=== PATIENT | male | born 1950 | race Caucasian/White ===

== ENCOUNTER 2025-10-25 00:19 | Inpatient (IN) | payer MEDICARE, OTHER, SELFPAY ==
[2025-10-24 21:25] VITALS: BP 98/83
[2025-10-24 21:26] VITALS: BMI 22.2
[2025-10-24 21:38] LABS: Hematocrit 43.8 % (39.0-52.0); Hemoglobin 14.5 g/dL (13.0-18.0); Mean Corp Hgb Conc. 33.1 g/dL (33.0-37.0); Mean Corpuscular Volume 93.6 fL (80.0-94.0); Nucleated Red Blood Cells % 0 % (-); Platelet Count 229 10^3/uL (130-400); Red Cell Dist. Width 13.6 % (11.5-14.5)
[2025-10-24 21:44] LABS: Glucose - Point of Care 72 mg/dl (70-99)
--- NOTE | 2025-10-24 21:47 | ED.GENMED ---
History of Present Illness
<Mirela Benites PA-C - Last Filed: 10/25/25 03:14>
General
Chief Complaint: Fainting/Passed Out
Source: patient
Exam Limitations: none
Time Seen by Provider: 10/24/25 21:35
History of Present Illness
History of Present Illness:
75yoM with a history of atrial fibrillation on Eliquis and pacemaker presenting via EMS for evaluation after a syncopal episode. Patient was out to dinner at a restaurant. He went to the bathroom after the dinner was finished to urinate. He was
urinating and started to become lightheaded. He then dropped to the ground. He is not sure if he lowered himself to the ground or passed out at that time. He was able to get up and go out of the stall. He was exiting the bathroom when he had a
witnessed syncopal episode. He hit the back of his head and woke up with emesis around him. He was reportedly unconscious for about 3 minutes. There was no associated incontinence, tongue biting, or seizure-like activity. He currently complains
of headache and neck stiffness. He also has some shortness of breath that started after the incident. He denies any chest pain. He had a syncopal episode about a year ago. He was told that he had a 14-second pause and a pacemaker was placed at
that time at [facility].
Phy Exam
<Mirela Benites PA-C - Last Filed: 10/25/25 03:14>
Physical Exam
Physical Exam:
Patient ill-appearing with dried emesis on chin, no apparent distress
General Physical Exam
General Presentation: no apparent distress
General Skin: warm and dry
General Habitus: elderly
General Mental: alert
ENT Exam
ENT Exam: normocephalic and other (No external signs of head trauma. No cervical spine tenderness.)
Cardiovascular Exam
Cardiovascular Exam: no edema and tachycardia
Pulmonary Exam
Pulmonary Exam: lungs clear, no respiratory distress, no rales, no crackles, no rhonchi and no wheezing
Gastrointestinal Exam
Gastrointestinal Exam: non tender, soft and non distended
Neurological Exam
Neurological Exam: alert
[place] Coma Scale
Eye Opening: Spontaneous
Verbal Response: Oriented
Motor Response: Obeys Commands
GCS Total Score: 15
Skin Exam
Skin Exam: normal color and warm/dry
Psychiatric Exam
Psychiatric Exam: normal mood/affect
<Kashmir Urias MD - Last Filed: 10/25/25 17:06>
[place] Coma Scale
GCS Total Score: 15
Course
<Mirela Benites PA-C - Last Filed: 10/25/25 03:14>
Orders/Labs/Results
Orders:
Orders
10/24/25 21:25
Electrocardiogram (*1) Urgent
Reason for Study: Syncope
EKG- Treatment ONCE
10/24/25 21:30
Complete Blood Count/With Diff Urgent
Comprehensive Metabolic Panel Urgent
Troponin I Urgent
10/24/25 21:34
CT Head W/o Iv Contrast Urgent
Comment:
Reason For Exam: syncope from standing, headache, on eliquis
Cervical Spine wo Contrast CT [CT Cervical Spine W/o Iv Contr] Urgent
Comment:
Reason For Exam: syncope from standing, headache, on eliquis
10/24/25 21:45
Interrogate Pacemaker- Treatment ONCE
10/24/25 21:46
Cardiac Monitoring- Treatment ONCE
0.9% Sodium Chloride 500 ml [Nss] 500 ml IV BOLUS
10/24/25 21:48
CR Chest Single View Urgent
Reason For Exam: SOB
10/24/25 22:49
Ondansetron Injectable [Zofran] 4 mg .ROUTE .[facility]
10/24/25 22:50
Ondansetron Injectable [Zofran] 4 mg IV NOW STA
10/24/25 23:23
Admit/Transfer Patient As Directed
Co-Sign Provider:
Level of Care: Inpatient admission
Assign to:: IVU
Physician / Group: azra
Diagnosis: syncope
Reason for Hospitalization: syncope
Expected length of stay greater than two midnights?: Yes
ELOS- Estimated Length of Stay in days: 2
I certify the patient meets the requirements for IP care: Yes
PRN Pain Medication Management As Directed
May give lesser potent ordered pain med per pt: Yes
preference::
Protocol:: Medication orders for pain may be administered in a
manner that supports deferring to patient preference
when the pt is:
- Requesting an ordered lesser potent pain medication.
Least to most potent pain medications are defined
as: acetaminophen < NSAID < tramadol < opioids
(morphine, oxycodone, hydromorphone).
- Requesting a lesser dose of the same medication IF
ORDERED.
- Requesting a less intrusive route of administration
if both routes are prescribed by the provider (PO <
IV).
10/24/25 23:24
Code Status As Directed
Resuscitation Status: Full Code
10/24/25 23:31
0.9% Sodium Chloride 250 ml [Nss] 250 ml IV BOLUS
10/24/25 23:47
Metoclopramide [Reglan] 10 mg IV NOW STA
10/25/25 01:11
Ondansetron Injectable [Zofran] 4 mg IV Q6HPRN PRN
10/25/25 01:11
CARDIOLOGY CONSULT Routine
Consulting Provider: Diomedes Quintanilla
Was physician already notified: No
Reason for consult: syncope
Consult Notification Routine
Specialty to Notify: Cardiology
Date consulting provider notified: 10/25/25
Time consulting provider notified: 07:16
Notified:: Provider
VTE Contraindication Routine
VTE Mechanical Device Contraindication: Medical Contraindication
Pharmocologic Contraindication: Medical Contraindication
Activity As Directed
Activity Level: As Tolerated
Vital Signs As Directed
Frequency: Per unit guidelines
10/25/25 02:02
Complete Blood Count/With Diff IN AM
Comprehensive Metabolic Panel IN AM
10/25/25 Breakfast
Cholesterol Lowering
At Your Request: Full Participation
Cholesterol Lowering: Sodium, 2 Gram
Abnormal Lab Results
10/24/25
21:30
RBC 4.68 L 10^6/uL
(4.70-6.10)
MPV 10.9 H fL
(7.4-10.4)
Abs Immat Gran (auto) 0.1 H 10^3/uL
(0-0.05)
Absolute Monos (auto) 0.9 H 10^3/uL
(0.1-0.6)
Immature Gran % 0.7 H %
(0-0.5)
BUN 22 H mg/dl
(9-20)
10/24/25 21:30
10/24/25 21:30
Vital Signs
Initial and Last Documented VS:
Initial Vital Signs
BP
98/83
10/24/25 21:25
Last Documented Vital Signs
Temp Pulse Resp BP Pulse Ox
98.2 F 73 12 110/70 96
10/25/25 15:27 10/25/25 15:45 10/25/25 15:27 10/25/25 15:28 10/25/25 15:27
<Kashmir Urias MD - Last Filed: 10/25/25 17:06>
Orders/Labs/Results
Orders:
Orders
10/24/25 21:25
Electrocardiogram (*1) Urgent
Reason for Study: Syncope
EKG- Treatment ONCE
10/24/25 21:30
Complete Blood Count/With Diff Urgent
Comprehensive Metabolic Panel Urgent
Troponin I Urgent
10/24/25 21:34
CT Head W/o Iv Contrast Urgent
Comment:
Reason For Exam: syncope from standing, headache, on eliquis
Cervical Spine wo Contrast CT [CT Cervical Spine W/o Iv Contr] Urgent
Comment:
Reason For Exam: syncope from standing, headache, on eliquis
10/24/25 21:45
Interrogate Pacemaker- Treatment ONCE
10/24/25 21:46
Cardiac Monitoring- Treatment ONCE
0.9% Sodium Chloride 500 ml [Nss] 500 ml IV BOLUS
10/24/25 21:48
CR Chest Single View Urgent
Reason For Exam: SOB
10/24/25 22:49
Ondansetron Injectable [Zofran] 4 mg .ROUTE .[facility]-MED ONE
10/24/25 22:50
Ondansetron Injectable [Zofran] 4 mg IV NOW STA
10/24/25 23:23
Admit/Transfer Patient As Directed
Co-Sign Provider:
Level of Care: Inpatient admission
Assign to:: IVU
Physician / Group: azra
Diagnosis: syncope
Reason for Hospitalization: syncope
Expected length of stay greater than two midnights?: Yes
ELOS- Estimated Length of Stay in days: 2
I certify the patient meets the requirements for IP care: Yes
PRN Pain Medication Management As Directed
May give lesser potent ordered pain med per pt: Yes
preference::
Protocol:: Medication orders for pain may be administered in a
manner that supports deferring to patient preference
when the pt is:
- Requesting an ordered lesser potent pain medication.
Least to most potent pain medications are defined
as: acetaminophen < NSAID < tramadol < opioids
(morphine, oxycodone, hydromorphone).
- Requesting a lesser dose of the same medication IF
ORDERED.
- Requesting a less intrusive route of administration
if both routes are prescribed by the provider (PO <
IV).
10/24/25 23:24
Code Status As Directed
Resuscitation Status: Full Code
10/24/25 23:31
0.9% Sodium Chloride 250 ml [Nss] 250 ml IV BOLUS
10/24/25 23:47
Metoclopramide [Reglan] 10 mg IV NOW STA
10/25/25 01:11
Ondansetron Injectable [Zofran] 4 mg IV Q6HPRN PRN
10/25/25 01:11
CARDIOLOGY CONSULT Routine
Consulting Provider: Diomedes Quintanilla
Was physician already notified: No
Reason for consult: syncope
Consult Notification Routine
Specialty to Notify: Cardiology
Date consulting provider notified: 10/25/25
Time consulting provider notified: 07:16
Notified:: Provider
VTE Contraindication Routine
VTE Mechanical Device Contraindication: Medical Contraindication
Pharmocologic Contraindication: Medical Contraindication
Activity As Directed
Activity Level: As Tolerated
Vital Signs As Directed
Frequency: Per unit guidelines
10/25/25 02:02
Complete Blood Count/With Diff IN AM
Comprehensive Metabolic Panel IN AM
10/25/25 Breakfast
Cholesterol Lowering
At Your Request: Full Participation
Cholesterol Lowering: Sodium, 2 Gram
Abnormal Lab Results
10/24/25
21:30
RBC 4.68 L 10^6/uL
(4.70-6.10)
MPV 10.9 H fL
(7.4-10.4)
Abs Immat Gran (auto) 0.1 H 10^3/uL
(0-0.05)
Absolute Monos (auto) 0.9 H 10^3/uL
(0.1-0.6)
Immature Gran % 0.7 H %
(0-0.5)
BUN 22 H mg/dl
(9-20)
10/24/25 21:30
10/24/25 21:30
Vital Signs
Initial and Last Documented VS:
Initial Vital Signs
BP
98/83
10/24/25 21:25
Last Documented Vital Signs
Temp Pulse Resp BP Pulse Ox
98.2 F 73 12 110/70 96
10/25/25 15:27 10/25/25 15:45 10/25/25 15:27 10/25/25 15:28 10/25/25 15:27
<Mirela Benites PA-C - Last Filed: 10/25/25 03:14>
MDM/Problems Addressed
Differential Diagnosis Includes:
75yoM presenting after a syncopal episode. Occurred while standing and preceded by dizziness. +Head strike on Eliquis. Patient tachycardic on arrival with HR around 120. BP 98/83. Patient appears ill although is nontoxic. Dried emesis noted on
chin. Differential diagnosis includes but is not limited to: Orthostatic hypotension, vasovagal episode, cardiogenic syncope, arrhythmia, intracranial hemorrhage
Initial ED plan: Check cardiac labs, EKG, CT head/cervical spine, chest x-ray, and interrogate pacemaker. 500cc NS bolus ordered.
<Mirela Benites PA-C - Last Filed: 10/25/25 03:14>
*Pulse Oximetry
Patient hypoxic: no
*EKG
Interpreted by ED Provider?: Yes
EKG Intrepretation Date: 10/24/25
Heart Rate: 119
Rate: tachycardiac
Rhythm: av sequential
[place]: normal axis
*Critical Care Note
Total Time (30-74mins, 75-104mins- exclusive of procedures): Not Applicable
<Mirela Benites PA-C - Last Filed: 10/25/25 03:14>
Update Note
Update Note:
Labs overall unremarkable including normal hemoglobin. Troponin normal and EKG shows paced rhythm. CT head/cervical spine negative for traumatic injuries and chest x-ray clear. Patient became transiently hypotensive to 87/75 while in ED. Blood
pressure improved with fluids. Patient continues to be symptomatic and had recurrent dizziness and vomiting while getting chest x-ray completed. Will admit for further evaluation.
ED Attending Note
<Mirela Benites PA-C - Last Filed: 10/25/25 03:14>
-
Portions of this chart may have been created with voice recognition software.� Occasional wrong word or��sound alike� substitutions may have occurred due to the inherent limitations of voice recognition software.
<Kashmir Urias MD - Last Filed: 10/25/25 17:06>
ED Attending Note
Patient seen and examined by attending physician: Yes
ED Attending Note:
Patient with history of atrial fibrillation on Eliquis, status post pacemaker placement 1 year ago secondary to arrhythmia with 14 sec pause, presents to ED secondary to syncopal episode this evening, shortly after having dinner at a local
restaurant. During dinnertime, patient reports having had seafood with a glass of wine. Patient walked to restroom, when he started to feel lightheaded and nauseous. Patient proceeded to sit down with mild improvement symptoms. When he stood up
again, he experienced lightheadedness again and passed out onto the floor. Patient was attended to immediately by bystanders. Patient denies confusion and remembers where he was immediately. Per family, patient took quite some time to call around
to be himself. Patient has had multiple similar episodes in the past, secondary to atrial fibrillation as well as low blood pressure. Denies recent illness. Denies recent change in medications or diet. Patient coming reports feeling weak, but
denies headache or neck pain. Denies dizziness. Denies loss of sensation or weakness.
Physical Exam
General: mild distress, not acutely ill. afebrile
Head: nc/at. eomi
Neck: supple. no midline tenderness
Heart: s1/s2 regular rate and rhythm
Lungs: no acute respiratory distress. clear bilaterally
Abdomen: normal bowel sounds. not tender.
Neuro: alert and oriented x 3. no focal neurological deficits
Skin: no rash
Psychiatric: well kept. interactive and cooperative
Extremities: no edema. no calf tenderness.
History and exam consistent with syncope, likely secondary to vasovagal episode. However, difficult to exclude arrhythmia or other etiology. As patient remains symptomatic with persistent nausea and lightheadedness, patient will be admitted for
further evaluation and treatment.
Pacemaker report pending.
Discharge Plan
Departure
Patient Disposition: Admit
Date of Disposition: 10/24/25
Time of Disposition: 23:00
Presentation/result/management discussed w/ accepting MD/DO: Hospitalist
Discharge Problem:
Syncope
Interventions
Interventions:
*Risk Screen - Suicide Last Done: 10/24/25 21:19
*General Assessment Last Done: 10/24/25 21:19
*Neglect/Abuse Screening Last Done: 10/24/25 21:57
*ED COVID-19 Vaccine History Last Done: 10/25/25 01:17
*ED Influenza Vaccine History Last Done: 10/24/25 21:57
[facility] Fall Risk Assessment Tool Last Done: 10/24/25 21:26
*Nursing Disposition Last Done: 10/25/25 01:10
ED- Cardiac Assessment Last Done: 10/24/25 21:30
ED- Neurological Assessment Last Done: 10/24/25 21:30
Discharge Date and Time
Discharge Date/Time: 10/25/25 01:10
[2025-10-24 21:48] VITALS: BP 97/73
[2025-10-24 22:00] VITALS: BP 87/75
[2025-10-24] MEDS: NSS 500 IV (22:00)
[2025-10-24 22:02] LABS: ALT (SGPT) 19 U/L (0-50); AST (SGOT) 21 U/L (17-59); Albumin 4.0 g/dl (3.5-5.0); Alkaline Phosphatase 83 U/L (38-126); Blood Urea Nitrogen 22 mg/dl (9-20); Calcium 9.0 mg/dl (8.4-10.2); Carbon Dioxide 26 mmol/L (22-30); Chloride 102 mmol/L (98-107); Estimated Creatinine Clearance 54 ml/min; Glucose 77 mg/dl (70-99); Potassium 3.9 mmol/L (3.5-5.1); Sodium 135 mmol/L (135-145); Total Protein 7.1 g/dl (6.3-8.2); eGFR > 60.00
[2025-10-24 22:10] VITALS: BP 106/75
[2025-10-24 22:14] LABS: Troponin I 0.021 ng/ml
[2025-10-24 22:48] VITALS: BP 104/73
[2025-10-24] MEDS: ZOFRAN 4 MG IV (22:50)
[2025-10-24 23:00] VITALS: BP 102/76
--- NOTE | 2025-10-24 23:25 | HPS.HSE ---
Family Physician
-
Family Physician:
Chief Complaint
-
syncope
History of Present Illness
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
syncopal episode. He was out to dinner at a restaurant and went to the bathroom after dinner to urinate. He was urinating and started to become lightheaded. He then dropped to the ground. He is not sure if he lowered himself to the ground or
pass out. He was able to get up and and wash his hands. He exited the bathroom when he had dizziness and witnessed syncopal episode. He hit the back of his head and woke up with vomit around him. He complains of headache and neck pain from the
head injury he also shortness of at the start after the incident. He denies any chest pain. He had a syncopal episode a year ago. At that time he had a 14-second pause and had a pacemaker placed at [facility].
He has had multiple similar episodes in the past secondary to atrial fibrillation and low blood pressure.
He continues to have nausea and some shortness of breath.
He did have some wine today but denies alcohol use regularly. Denies smoking or drugs.
No family history of heart disease.
Medical History
Past Medical History
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
Past Surgical History: Reports Other (prostate surgery )
Social History
Tobacco: Non-smoker
Alcohol: None
Drug: None
Family History
Family History: Not pertinent
Allergies / Home Medications
Allergies reflects when Allergies were last updated in [employer].
Home Medications with original date entered in [employer]
Allergy/Medication List:
Allergies
Allergy/AdvReac Type Severity Reaction Status Date / Time
No Known Allergies Allergy Verified 10/24/25 21:44
Home Medications
apixaban 5 mg tablet (Eliquis) 5 mg PO BID 10/24/25
diclofenac sodium 1 % topical gel 2 g topical DAILY 10/24/25
flecainide 100 mg tablet 100 mg PO Q12H 10/24/25
metoprolol tartrate 25 mg tablet 12.5 mg PO BID 10/24/25
pantoprazole 40 mg tablet,delayed release 40 mg PO DAILY 10/24/25
Review of Systems
-
History Source: Patient
A 12 point ROS was completed and negative except as noted: Yes
Constitutional: Reports No Symptoms
EENT: Reports No Symptoms
Respiratory: Reports No Symptoms
Cardiac: Reports See HPI
Abdomen/GI: Reports No Symptoms
: Reports No Symptoms
Musculoskeletal: Reports No Symptoms
Skin: Reports No Symptoms
Neurological: Reports No Symptoms
Endocrine: Reports No Symptoms
Hematologic/Lymphatic: Reports No Symptoms
Psych: Reports No Symptoms
Physical Exam
Vital Signs
Vital Signs
Temp Pulse Resp BP Pulse Ox
97.5 F 65 12 106/75 95
10/24/25 21:36 10/24/25 22:15 10/24/25 22:15 10/24/25 22:10 10/24/25 22:15
Physical Exam
General: Well Developed, Well Nourished and No Apparent Distress
HEENT: NormoCephalic, Moist mucous membranes and Atraumatic
Respiratory: Clear
Cardiac: S1/S2 and Regular Rhythm; No Murmur or Rub
GI: Soft, Non Tender, Non Distended and Normal Bowel Sounds; No Organomegaly
Rectal: Deferred by Provider
Musculoskeletal: No Clubbing, No Cyanosis and No Edema
Skin: No Rash
Neuro: Nonfocal/grossly intact
Laboratory Results
-
10/24/25 21:30
10/24/25 21:30
Laboratory Results
Total Bilirubin 0.6 mg/dl (0.2-1.3) 10/24/25 21:30
AST 21 U/L (17-59) 10/24/25 21:30
ALT 19 U/L (0-50) 10/24/25 21:30
Alkaline Phosphatase 83 U/L (38-126) 10/24/25 21:30
Troponin I 0.021 ng/ml 10/24/25 21:30
Data Reviewed
-
Lab Data: Labs Reviewed by me
Old Records: Reviewed
Impression/Plan
-
IMPRESSION:
PLAN:
# Syncopal episode concerning for arrhythmia
# History of sinus pause 14-second status post pacemaker
-Blood pressure initially 98/83
-EKG shows ventricular paced rhythm
-Chest x-ray shows no evidence of congestive heart failure,
-IV fluids given
- Pacemaker interrogated and report pending
-Hold metoprolol, flecainide for now until interrogation report available
- Cardiology consulted
# Head injury from syncope
- CT head and CT cervical spine does not show any abnormality
Paroxysmal atrial fibrillation
- Continue Eliquis
BPH status post prostatectomy
Glaucoma
History of meningitis as child status post brain shunting
GERD
- Continue Protonix
Full code
DVT prophylaxis�Eliquis
Cardiac diet
[2025-10-24] MEDS: NSS 250 IV (23:31)
[2025-10-25] VITALS (28 sets, daily range): BP systolic 73–110; BP diastolic 49–84; PULSE 76–86; BMI 21.6
[2025-10-25] MEDS: REGLAN 10 MG IV (00:03)
--- NOTE | 2025-10-25 02:11 | PTCARENOTE ---
Patient transferred from ED @ 0100. AOx3. Unable to ambulate to bed. SR on monitor w/ occasional A and V-pacing. BP 108/75 HR 75. Heart sounds audible. Radial and pedal pulses present. Permanent pace maker present. POX 95% RA. Lungs
diminished in bases. Bowel sounds normoactive. Patient nauseous and vomiting clear liquid. PIV patent and intact. Admission questions asked. Height and weight confirmed. Patient states he is feeling a little better and would like to get some
sleep. See worklist for more details.
[2025-10-25 02:27] LABS: Hematocrit 42.4 % (39.0-52.0); Hemoglobin 14.2 g/dL (13.0-18.0); Mean Corp Hgb Conc. 33.5 g/dL (33.0-37.0); Mean Corpuscular Volume 92.4 fL (80.0-94.0); Nucleated Red Blood Cells % 0 % (-); Platelet Count 209 10^3/uL (130-400); Red Cell Dist. Width 13.5 % (11.5-14.5)
[2025-10-25 03:01] LABS: ALT (SGPT) 18 U/L (0-50); AST (SGOT) 21 U/L (17-59); Albumin 3.8 g/dl (3.5-5.0); Alkaline Phosphatase 86 U/L (38-126); Blood Urea Nitrogen 23 mg/dl (9-20); Calcium 8.9 mg/dl (8.4-10.2); Carbon Dioxide 26 mmol/L (22-30); Chloride 104 mmol/L (98-107); Estimated Creatinine Clearance 57 ml/min; Glucose 98 mg/dl (70-99); Potassium 4.4 mmol/L (3.5-5.1); Sodium 137 mmol/L (135-145); Total Protein 6.7 g/dl (6.3-8.2); eGFR > 60.00
--- NOTE | 2025-10-25 09:30 | CON.CAR ---
Addendum entered and electronically signed by Nacho Cohen MD 10/25/25 10:21:
I saw and examined the patient.
The ATOMIC PHYSICS TEACHER or PA's note was reviewed and I agree with the note.
Comment: General: Well developed, well nourished in NAD.
Neck: Supple, no JVD, HJR, carotids +2 B/L, no bruits bilaterally.
Heart: Non displaced PMI, RRR, no murmurs, No S3, S4, no rubs.
Lungs: Clear to auscultation bilaterally, no wheeze, rhonchi, rubs bilaterally,
normal expiratory phase.
Abdomen: Normal bowel sounds, soft, non-tender, non-distended.
Extremities: No clubbing, cyanosis or edema bilaterally.
Neuro: Grossly nonfocal, awake, alert and oriented x3.
Chung has a history of syncope with sick sinus syndrome status post pacer in October 2024, PAF. He presented to syncopal episode at a restaurant. Moved to the bathroom was standing urinating felt lightheaded. He lowered himself to the ground
stood up again and lost consciousness and fell. Cardiology consulted for syncope. Pacemaker check was okay. Bradycardia did have a beer and wine at dinner as well. No chest pain, short breath, or palpitations.
Etiology of syncope is likely vasovagal. Device check was normal and echocardiogram was okay. Will check orthostatics. If okay patient will be stable for discharge and can follow-up with his plant custodian in [place]. Discussed with primary
service.
Original Note:
Consultation
Consultation Request
Date/Time Consultation Requested: 10/25/2025, 0111
Date/Time Consultation Performed: 10/25/2025, 06 11
Requesting Provider: Dr. Pedersen
Performing Provider: APPLE Hahn for Dr. Cohen
Reason for Consultation: Syncope
Medical History
-
Chief Complaint: Syncope
History of Present Illness:
75-year-old male with past medical history of paroxysmal atrial fibrillation, dual-chamber Biotronik pacemaker 11/05/2024 after 14-second sinus pause, enlarged prostate status post prostatectomy, presents to [facility] ER10/24/2025
following syncopal episode while at restaurant. He had gotten up to go to the bathroom. While standing and urinating he felt lightheaded. He lowered himself to the ground, stood up again, was washing his hands when he felt flushed, then lost
consciousness and fell. When he came to he was vomiting. An ambulance was called and he felt short of breath in the ambulance. Upon arrival to ED he was tachycardic, V paced in 120s, blood pressure 98/83
He reports having similar episodes in the past prior to having pacemaker placed in October 2024 and has not had any episodes until last night.
Last night prior to dinner he had a beer and also had a glass of wine with dinner.
He has had no recent illnesses, new medications, medication changes, procedures, surgeries
He is followed at [facility] by Dr. Jo, primary plant custodian, and Dr. Bird, EP at [place].
He is on flecainide 100 mg twice daily, metoprolol tartrate 25 mg twice daily, and Eliquis 5 mg twice daily for his history of paroxysmal atrial fibrillation.
He denies history of PR, CAD, heart failure, ventricular arrhythmias, diabetes
ED evaluation:
EKG: V paced
Chest x-ray: No evidence of heart failure
Head CT: No acute intercranial abnormality
Cervical spine CT: No fracture or soft tissue swelling, moderate to advanced degenerative disc disease
Labs: Hemoglobin 14.5, BUN/creatinine 22/1.2, NA 135, K3.9, glucose 77, LFTs within normal limits, troponin 0.021
His Biotronik dual-chamber pacemaker was interrogated: No arrhythmias at time of episode. Last episode of paroxysmal atrial fibrillation was June 2025.
He is A paced, V sensed 71%, A paced, V paced 22%, A sensed V sensed 7%
Past medical history:
Paroxysmal atrial fibrillation
Permanent pacemaker, Biotronik, 11/01/2024 at [place], Dr. Bird
Reported sinus pauses status post pacemaker
Low blood pressure
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
GERD
Glaucoma
BPH status post prostatectomy
Past Medical History
Past Medical History: Other (As above)
Past Surgical History: Other (Prostatectomy)
Social History
Tobacco: Non-Smoker
Alcohol: Occasional
Drug: None
Personal:
Living: With Family
Employment: Retired
Family History
Family History: Other (Father at young age of lung cancer, mother from dementia. No known family history of CAD)
Allergies / Home Medications
Allergy/AdvReac Type Severity Reaction Status Date / Time
No Known Allergies Allergy Verified 10/24/25 21:44
�Medication �Instructions �Recorded �Confirmed �Type
apixaban 5 mg tablet (Eliquis) 5 mg PO BID 10/24/25 10/24/25 History
diclofenac sodium 1 % topical gel 2 g topical DAILY 10/24/25 10/24/25 History
flecainide 100 mg tablet 100 mg PO Q12H 10/24/25 10/24/25 History
metoprolol tartrate 25 mg tablet 12.5 mg PO BID 10/24/25 10/24/25 History
pantoprazole 40 mg tablet,delayed 40 mg PO DAILY 10/24/25 10/24/25 History
release
Review of Systems
-
History Source: Patient
Constitutional: No Symptoms
Physical Exam
Vital Signs
Temp Pulse Resp BP Pulse Ox
98.1 F 77 12 90/63 91
10/25/25 08:16 10/25/25 08:45 10/25/25 08:16 10/25/25 08:15 10/25/25 08:16
Lab Results
10/25/25 02:02
10/25/25 02:02
Troponin I 0.021 ng/ml 10/24/25 21:30
GEN: No distress, awake, Ox3
HEENT: supple, anicteric, mmm
LUNGS: CTA, no wheezes/rales
CV: Reg, S1/S2, no murmur
ABD: soft, BS+, NT/ND
EXT: No edema
NEURO: Gross non-focal
SKIN: No rash
Impression / Plan
-
PCP:
Primary plant custodian: Dr. Deysi Trent
EP : Dr Marge Carroll
Impression:
Syncope
Dizziness
Paroxysmal atrial fibrillation
Permanent pacemaker for sinus pauses
History of low blood pressures
Shortness of breath
Previous cardiovascular testing:
Patient reports he has had echoes and stress test in the past but none recently
Plan:
-75-year-old male with past medical history of paroxysmal atrial fibrillation, dual-chamber Biotronik pacemaker 11/05/2024 after 14-second sinus pause, presents to [facility] ER10/24/2025 following syncopal episode while at restaurant.
He had gotten up to go to the bathroom. While standing and urinating he felt lightheaded. He lowered himself to the ground, stood up again, was washing his hands when he felt flushed, then lost consciousness and fell. When he came to he was
vomiting. Gerlach short of breath in ambulance. Upon arrival to ED he was tachycardic, V paced in 120s, blood pressure 98/83
He reports having similar episodes in the past prior to having pacemaker placed in October 2024 and has not had any episodes until last night.
Last night prior to dinner he had a beer and also had a glass of wine with dinner.
Pacemaker interrogated in ED and no arrhythmia at time of episode.
- Episode was not arrhythmogenic in origin
-Check echo to evaluate for structural heart abnormalities in setting of syncope
- Check orthostatic blood pressures
-Would consider repeat stress test in outpatient setting since he is on flecainide
-Denies anginal symptoms
-Limit alcohol
-Avoid dehydration
-Head CT with no acute abnormality, okay to resume Eliquis
-Repeat twelve-lead EKG, as he is no longer tachycardic
-telemetry reviewed: NSR w/ A and V pacing
Data Reviewed
-
EKG: Tracing Personally Visualized and interpreted
Labs: Labs Reviewed by me
--- NOTE | 2025-10-25 13:27 | W.PN.HOSP.TC ---
Today's Communication/Plan
-
Discharge home today if orthostatic improves.
Assessment / Plan
Assessment / Plan
Impression:
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
syncopal episode. He was out to dinner at a restaurant and went to the bathroom after dinner to urinate. He was urinating and started to become lightheaded. He then dropped to the ground. He is not sure if he lowered himself to the ground or
pass out. He was able to get up and and wash his hands. He exited the bathroom when he had dizziness and witnessed syncopal episode. He hit the back of his head and woke up with vomit around him. He complains of headache and neck pain from the
head injury he also shortness of at the start after the incident. He denies any chest pain. He had a syncopal episode a year ago. At that time he had a 14-second pause and had a pacemaker placed at [facility].
Patient was seen by cardiology, pacemaker interrogation back unremarkable.
Echocardiogram showed:
1. Left ventricular ejection fraction is normal with an ejection fraction of 62 % by Eldridge's biplane method of discs.
2. Normal left ventricular size, wall thickness and systolic function. No regional wall motion abnormalities are seen.
3. Mildly dilated aortic root. SOV measure 4.4 cm, S-T Junction measures 2.8 cm, Ascending Aorta measures 3.7 cm.
Patient was positive for static, cleared for discharge by cardiology if orthostatic improved.
Assessment/plan:
Syncopal Episode � no Arrhythmia seen on pacemaker interrogation
Possible related to positive orthostatic.
History of sinus pause (14 seconds) status post pacemaker
Initial BP: 98/83
EKG: Ventricular paced rhythm
Chest X-ray: No evidence of congestive heart failure
IV fluids given
Cardiology consulted; interrogation returned unremarkable
Echocardiogram:
Normal LV size and systolic function; EF 62%
No regional wall motion abnormalities
Mildly dilated aortic root (SOV 4.4 cm, ST junction 2.8 cm, ascending aorta 3.7 cm)
Positive orthostatics; advised compression stockings
Cleared for discharge by cardiology if orthostatics improves
Head Injury from Syncope
CT head and cervical spine: No abnormalities
Paroxysmal Atrial Fibrillation
Continue Eliquis
BPH Status Post Prostatectomy
Glaucoma
History of Meningitis as Child � Status Post Brain Shunt
GERD
Continue Protonix
CODE STATUS: Full code
DVT prophylaxis: Eliquis
Diet: cardiac diet
Disposition: Discharge home today if orthostatic improves.
Total time spent on today's encounter was 65 minutes which included time spent in counseling the patient/family regarding diagnosis and treatment plan as listed above, goals of care, and symptom management. Case was discussed with nursing staff,
specialists, and care coordinators/case management. All labs and imaging personally reviewed by me. Remainder the time spent in detailed review of previous records, lab data, imaging, and other medical provider documentation.
Anticipated Discharge: Today
Subjective/Interval History
-
Date of Service: October 25, 2025
Patient seen and examined at bedside, denies any chest pain or shortness of breath, no abdominal pain, no nausea, no vomiting, no diarrhea or constipation.
Positive orthostatic.
Objective Data
-
Labs:
Laboratory Results
10/25/25
02:02
WBC 12.5 H
Hgb 14.2
Hct 42.4
Plt Count 209
Sodium 137
Potassium 4.4
Chloride 104
Carbon Dioxide 26
BUN 23 H
Creatinine 1.1
Glucose 98
Calcium 8.9
Total Bilirubin 1.0
AST 21
ALT 18
Alkaline Phosphatase 86
Vital Signs:
Vital Signs
Temp Pulse Resp BP Pulse Ox
98.1 F 72 12 92/57 95
10/25/25 12:22 10/25/25 13:00 10/25/25 12:22 10/25/25 13:00 10/25/25 12:22
Physical Exam
-
General: Well Developed, Well Nourished, No Apparent Distress and Comfortable
HEENT: Normocephalic, Atraumatic, Moist Mucous Membranes, No Ptosis, PERRLA and Nose Appears Normal
Respiratory: Clear to Auscultation and Non Labored Respirations
Cardiac: Regular Rhythm and S1/S2
Breast: Deferred by me
GI: Soft, Nontender, Nondistended and Normal Bowel Sounds
Genito-urinary: No Costovertebral Tender
Musculoskeletal: No Clubbing, No Cyanosis and No Edema
Skin: Warm
Neuro: Awake, Alert, Oriented, AO x 3 and No Motor Deficits
Psych: Calm
Data Reviewed
-
Diagnostic Radiology: Image personally visualized and interpreted and Report Reviewed by me
CT Scan: Image personally visualized and interpreted and Report Reviewed by me
Ultrasound: Image personally visualized and interpreted and Report Reviewed by me
MRI: Image personally visualized and interpreted and Report Reviewed by me
Medical Tests (Nuc Med, Echo etc): Image personally visualized and interpreted and Report Reviewed by me
Labs: Labs Reviewed by me
Old Records: Reviewed
--- NOTE | 2025-10-25 14:26 | PTCARENOTE ---
Assumed care of pt from nightshift RN. Pt AAOx4. Between SR or A/V paced on the tele monitor. HR 70s. BP labile, as documented. Cardiology consulted. Echo ordered/complete. No edema noted. Pt on RA. POX 95%. Lung sounds diminished. Occasional harsh
cough. Abdomen round. +BSx4. Voiding w/o issue. +BM. PIVx1 intact. Pt updated w/ plan for day. Repeat EKG, apply DIANA stockings, orthostatic BPs. Call alfredo within reach.
--- NOTE | 2025-10-25 15:00 | W.DCSUMMARY ---
Discharge Summary
Discharge Data
Date of Admission: 10/24/25
Date of Discharge: 10/25/25
Total time spent discharging patient (in min): 40
-
Pending Results: No
Hospital Course
Hospital course
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
syncopal episode. He was out to dinner at a restaurant and went to the bathroom after dinner to urinate. He was urinating and started to become lightheaded. He then dropped to the ground. He is not sure if he lowered himself to the ground or
pass out. He was able to get up and and wash his hands. He exited the bathroom when he had dizziness and witnessed syncopal episode. He hit the back of his head and woke up with vomit around him. He complains of headache and neck pain from the
head injury he also shortness of at the start after the incident. He denies any chest pain. He had a syncopal episode a year ago. At that time he had a 14-second pause and had a pacemaker placed at [facility].
Patient was seen by cardiology, pacemaker interrogation back unremarkable.
Echocardiogram showed:
1. Left ventricular ejection fraction is normal with an ejection fraction of 62 % by Eldridge's biplane method of discs.
2. Normal left ventricular size, wall thickness and systolic function. No regional wall motion abnormalities are seen.
3. Mildly dilated aortic root. SOV measure 4.4 cm, S-T Junction measures 2.8 cm, Ascending Aorta measures 3.7 cm.
Patient was positive for orthostatic, cleared for discharge by cardiology if orthostatic improved.
Repeat orthostatic negative, okay to discharge home.
During hospitalization patient was treated from the following
Syncopal Episode � no Arrhythmia seen on pacemaker interrogation
Possible related to positive orthostatic.
History of sinus pause (14 seconds) status post pacemaker
Initial BP: 98/83
EKG: Ventricular paced rhythm
Chest X-ray: No evidence of congestive heart failure
IV fluids given
Cardiology consulted; interrogation returned unremarkable
Echocardiogram:
Normal LV size and systolic function; EF 62%
No regional wall motion abnormalities
Mildly dilated aortic root (SOV 4.4 cm, ST junction 2.8 cm, ascending aorta 3.7 cm)
Positive orthostatics; advised compression stockings
Cleared for discharge by cardiology if orthostatics improves
Head Injury from Syncope
CT head and cervical spine: No abnormalities
Paroxysmal Atrial Fibrillation
Continue Eliquis
BPH Status Post Prostatectomy
Glaucoma
History of Meningitis as Child � Status Post Brain Shunt
GERD
Continue Protonix
CODE STATUS: Full code
DVT prophylaxis: Eliquis
Diet: cardiac diet
Disposition: Discharge home today.
Total time spent on today's encounter was 40 minutes which included time spent in counseling the patient/family regarding diagnosis and treatment plan as listed above, goals of care, and symptom management. Case was discussed with nursing staff,
specialists, and care coordinators/case management. All labs and imaging personally reviewed by me. Remainder the time spent in detailed review of previous records, lab data, imaging, and other medical provider documentation.
Anticipated Discharge: Today
Discharge Plan
-
Patient Disposition: Home (Routine Discharge)
Discharge Diagnosis/Procedures: Syncope
Diet: Low Cholesterol
Activity: As tolerated
Referrals:
[employer] [facility] [Other] - in two to three weeks
[facility],* [Family Provider, Internal Medicine]
Prescriptions:
Continued
pantoprazole 40 mg Tablet,Delayed Release (Dr/Ec)
40 mg PO DAILY
flecainide 100 mg Tablet
100 mg PO Q12H
metoprolol tartrate 25 mg Tablet
12.5 mg PO BID
diclofenac sodium 1 % Gel
2 g TOPICAL DAILY
Patient Comments:
puts on right 4th toe once a day
Eliquis 5 mg Tablet
5 mg PO BID
Discharge Orders:
Discharge Patient (As Directed); Ordered 10/25/25
Ordered By: Gunner Sarkar
Discharge Date and Time
Discharge Date/Time: 10/25/25 16:30
Print Language: ALBANIAN
--- NOTE | 2025-10-25 16:27 | PTCARENOTE ---
Repeat orthostatic BPs negative. Dr. Sarkar notified - order to discharge. No lightheadedness, dizziness, or diaphoresis. Discharge instructions reviewed w/ pt and family at the bedside. Pt changed into clothes, tele pack removed, IV dc'd. Questions
encouraged and answered. Education about DIANA stockings. Suggested purchasing home BP cuff. Pt transported out via wheelchair by RN.
== END 2025-10-25 16:30 | disposition home or self-care (01) | DRG 312 ==
LOC: IVU 00:19
PROVIDERS: Emergency Medicine; ADMITTING PHYSICIAN Hospitalist; ATTENDING PHYSICIAN General Practice; EMERGENCY PHYSICIAN Emergency Medicine; OTHER PHYSICIAN Internal Medicine Cardiovascular Disease
PROC: 4B02XSZ Measurement of Cardiac Pacemaker, External Approach (ICD-10-PCS; 2025-10-24)
DX: R55 Syncope and collapse (principal); I48.0 Paroxysmal atrial fibrillation; Z95.0 Presence of cardiac pacemaker; W19.XXXA Unspecified fall, initial encounter; K21.9 Gastro-esophageal reflux disease without esophagitis; N40.0 Benign prostatic hyperplasia without lower urinary tract symptoms; H40.9 Unspecified glaucoma; Z86.61 Personal history of infections of the central nervous system; Z90.79 Acquired absence of other genital organ(s); S09.90XA Unspecified injury of head, initial encounter; Z79.01 Long term (current) use of anticoagulants; Z79.899 Other long term (current) drug therapy; Z80.1 Family history of malignant neoplasm of trachea, bronchus and lung; I49.5 Sick sinus syndrome
CPT/HCPCS: 70450; 71045; 72125; 80053; 82962; 84484; 85025; 93005; 93288; 93306; 96361; 96374; 99285